=== PATIENT | male | born 1995 | race Caucasian/White ===

== ENCOUNTER 2016-12-07 21:59 | Emergency (ER) | payer OTHER ==
[~2016-12-07] VITALS: Ht 188 cm; Wt 92.0 kg
[2016-12-07 22:25] LABS: COLOR YELLOW ((YELLOW))
[2016-12-07 22:26] LABS: ADD MIUA? YES; BILIRUBIN NEGATIVE; BLOOD MODERATE; GLUCOSE (STRIP) NEGATIVE; KETONES NEGATIVE; LEUKOCYTES NEGATIVE; NITRITE NEGATIVE; PH, URINE 8.5 (5-8); PROTEIN (STRIP) NEGATIVE; UROBILINOGEN 0.2 MG/DL (0.2-1.0)
[2016-12-07 22:26] LABS: HEMATOCRIT 45.6 % (38.0-50.0); MCH 29.7 PG (29.0-34.0); MCHC 34.2 G/DL (30.0-36.0); MCV 86.7 FL (86-99); MEAN PLAT.VOLUME 10.1 uM^3 (9.0-12.4); PLATELET COUNT 207 K/uL (156-360); RBC DIS.WIDTH-CV 12.2 % (11.8-14.6); RBC DIS.WIDTH-SD 38.8 % (39-53); RED BLOOD COUNT 5.26 M/uL (4.00-5.50); WHITE BLOOD COUNT 12.3 K/uL (4.1-10.2)
[2016-12-07 22:27] LABS: EPITHELIAL CELLS RARE /HPF; MUCUS NONE SEEN /LPF; RED BLOOD CELLS 0-5 /HPF (0-5); WHITE BLOOD CELLS 0-5 /HPF (0-5)
[2016-12-07 22:28] LABS: AMORPHOUS PHOSPHATE CRYSTALS 3+; BACTERIA 2+ /HPF; UCUL ADDED? NO
[2016-12-07 22:43] LABS: CHLORIDE 104 mEq/L (99-109); POTASSIUM 3.3 mEq/L (3.7-5.4); SODIUM 141 mEq/L (136-147)
[2016-12-07 22:44] LABS: GLUCOSE 130 mg/dL (70-99)
[2016-12-07 22:46] LABS: ANION GAP 11 MEQ/L (2-14)
[2016-12-07 22:48] LABS: GFR ESTIMATE (CALCULATED) > 59 mL/min/
[2016-12-07 22:49] LABS: UREA NITROGEN (BUN) 14 mg/dL (9-23)
[2016-12-07] MEDS ORDERED: TORADOL10 MG PO (23:22)
[2016-12-07] MEDS ORDERED: PERCOCET 5/31 TABLET PO (23:22)
[2016-12-07] MEDS ORDERED: ZOFRAN4 MG PO (23:22)
[2016-12-07 23:51] VITALS: BP 131/84
== END 2016-12-07 23:54 | disposition home or self-care (01) ==
LOC: EME 21:59
DX: N13.2 Hydronephrosis with renal and ureteral calculous obstruction (principal); R30.0 Dysuria; R11.2 Nausea with vomiting, unspecified
CPT/HCPCS: 74176; 80048; 81003; 85027; 87086; 99281; 99284; J1885